=== PATIENT | male | born 1960 | race Caucasian/White ===

== ENCOUNTER 2019-07-17 12:04 | Outpatient (CLI) | payer OTHER ==
[~2019-07-17] VITALS: Ht 180.3 cm; Wt 104.1 kg
--- NOTE | ~2019-07-17 | HEMODYNAMI ---
PATIENT:JAYA TAYLOR MEDICAL RECORD: [id number] : 58 LOCATION:[facility] ADMISSION DATE: 07/17/19 Generatedon:07/17/201914:56 Patient name: JAYA TAYLOR Patient #: [id number] SSN: : 1960 Date of study: 07/17/2019 Page: Of Hemodynamic Procedure Report Patient Data Patient Demographics Procedure consent was obtained First Name: JAYA Gender: Male Last Name: BRANDON : 1960 Patient #: [id number] Age: 59 year(s) Race: Unknown Additional ID: [id number] Contact details Address: [address] [place] [address] State: [place] City: [place] Zip code: [address] Admission Admission Data Admission Date: 07/17/2019 Admission Time: 12:04 Arrival Date: 07/17/2019 Arrival Time: 0:00 Admit Source: Other Insurance Payor: [facility] Height (in.): 71 BSA: 2.25 (m2) Height (cm.): 180.34 BMI: 32.36 (kg/m2) Weight (lbs.): 232 Weight (kg.): 105.23 Lab Results Lab Result Date: 07/17/2019 Lab Result Time: 0:00 Biochemistry Name Units Result Min Max BUN mg/dl 10 --(-*--)-- 7 18 Creatinine mg/dl 1 --(--*-)-- 0.6 1.3 eGFR ml/min 81 *-(----)-- 90 120 NONAFRICAN CBC Name Units Result Min Max Hemoglobin g/dl 14.8 --(-*--)-- 13.5 17.5 Procedure Procedure Types Cath Procedure Diagnostic Procedure [facility] w/Coronaries Sedation Charges Moderate Sedation up to 30 minutes PCI Procedure Coronary Stent Coronary Stent Initial Procedure Description Procedure Date Procedure Date: 07/17/2019 Procedure Start Time: 14:17 Procedure End Time: 14:53 Procedure Staff Name Function Amaury Bush MD Performing Physician Theodora Gómez RT Monitor Kimberly Cole RT Scrub Aretha Morrissey RN Nurse Jazmyne Steel RN Bond Trader Procedure Data Cath Procedure Fluoroscopy Diagnostic fluoroscopy Total fluoroscopy Time: 7.5 time: 7.5 min min Diagnostic fluoroscopy Total fluoroscopy dose: dose: 1454 mGy 1454 mGy Contrast Material Contrast Material Type Amount (ml) Isovue 300 144 Entry Location Entry Primary Successful Side Size Upsize Upsize Entry Closure Succes sful Closure Location (Fr) 1 (Fr) 2 (Fr) Remarks Device Remarks Femoral Right 5 Fr 6 Fr Exoseal artery Short Estimated blood loss: 5 ml Diagnostic catheters Device Type Used For End Catheter Placement MULTIPACK JL 4.0 5Fr Left Coronary catheter Angiography MULTIPACK 3DRC 5Fr Right Coronary catheter Angiography MULTIPACK Pigtail 5 Fr LV Angiography catheter Procedure Complications No complications Procedure Medications Medication Administration Route Dosage Oxygen etCO2 Nasal cannula 2 l/min Lidocaine 2% added to field 20 Heparin Flush Bag added to field 2 bags (1000units/500ml NS) 0.9% NaCl I.V. 100 ml/hr Versed I.V. 2 mg Fentanyl I.V. 50 mcg Versed I.V. 2 mg Fentanyl I.V. 50 mcg Fentanyl I.V. 50 mcg Fentanyl I.V. 50 mcg Versed I.V. 2 mg Heparin Bolus I.V. 10614 units Nitroglycerin IC/IA I.C. 100 mcg Plavix P.O. 600 mg Hemodynamics Rest BSA: 2.25 (m2) HGB: 14.8 (g/dl) O2 Consumption: Estimated: 256.19 (ml/min) O2 Co nsumption indexed: Estimated:113.86 (ml/min/m) Heart Rate: 60 (bpm) Pressure Samples Time Site Value (mmHg) Purpose Heart Use Rate(bpm) 14:28 LV 133/6,26 Snapshot 62 14:28 AO 128/63(93) Pullback 63 Gradients Valve Time Site Site 2 Mean SEP/DFP Peak To Heart Use 1 (mmHg) (sec/min) Peak Rate (mmHg) (bpm) Aortic 14:28 LV AO 16 5 63 128/63(93) Calculations Valve P-P Mean Valve Index Valve Source Name Gradient Area Flow (cm2) Aortic 16 16 Snapshots Pre Cath Intra NCS Post Cath Vital Signs Time Heart Resp SPO2 etCO2 NIBP (mmHg) Rhythm Pain Sedation Rate (ipm) (%) (mmHg) Status Level (bpm) 14:03:01 58 16 100 26.3 Measuring SB 0 (11) 10(A) , No pain 14:09:12 57 19 97 30 Measuring SB 0 (11) 10(A) , No pain 14:16:47 58 15 98 26 109/65(79) SB 0 (11) 10(A) , No pain 14:20:58 59 11 98 28.5 120/72(92) SB 0 (11) 10(A) , No pain 14:25:58 59 18 97 30.8 Measuring SB 0 (11) 10(A) , No pain 14:25:59 59 18 99 30.8 119/68(100) SB 0 (11) 10(A) , No pain 14:30:15 60 13 98 34.5 124/70(94) NSR 0 (11) 10(A) , No pain 14:34:29 60 14 96 22.5 118/72(94) NSR 0 (11) 10(A) , No pain 14:38:44 60 17 97 31.5 111/65(76) NSR 0 (11) 10(A) , No pain 14:42:55 59 16 97 33 114/61(87) SB 0 (11) 10(A) , No pain 14:47:09 60 18 96 27.7 115/64(93) NSR 0 (11) 10(A) , No pain 14:51:19 59 14 97 31.5 124/74(89) NSR 0 (11) 10(A) , No pain Medications Time Medication Route Dose Verified Delivered Reason Notes Effectiveness by by 14:00:41 Oxygen etCO2 2 Amaury Buffie used for Nasal l/min Eleazar Morrissey RN procedure cannula 14:00:49 Lidocaine 2% added 20ml Amaury Amaury for local to vial Eleazar Bush MD anesthetic field 14:00:55 Heparin Flush added 2 Amaury Amaury used for Bag to bags Eleazar Bush MD procedure (1000units/500ml field NS) 14:01:04 0.9% NaCl I.V. 100 Amaury Buffie Per physician ml/hr Eleazar Morrissey RN 14:06:18 Fentanyl I.V. 50 Amaury Jazmyne for sedation [facility] Eleazar Steel RN 14:06:18 Versed I.V. 2 mg Amaury Jazmyne for sedation Eleazar Steel RN 14:12:27 Versed I.V. 2 mg Amaury Jazmyne for sedation Eleazar Steel RN 14:12:32 Fentanyl I.V. 50 Amaury Jazmyne for sedation mcg Eleazar Steel RN 14:18:40 Fentanyl I.V. 50 Amaury Jazmyne for sedation mcg Eleazar Steel RN 14:24:47 Fentanyl I.V. 50 Amaury Jazmyne for sedation mcg Eleazar Steel RN 14:29:54 Versed I.V. 2 mg Amaury Jazmyne for sedation Eleazar Steel RN 14:33:24 Heparin Bolus I.V. 20090 Amaury Jazmyne for verif ied units Eleazar Steel anticoagulation with Dr. COLIN Bush 14:42:10 Nitroglycerin I.C. 100 Amaury Amaury for IC/IA mcg Eleazar greenberg 14:52:07 Plavix P.O. 600 Amaury Jazmyne for mg Eleazar Steel antiplatelet RN therapy Procedure Log Time Note 13:30:56 Aretha Morrissey RN sent for patient. Start room use. 13:47:33 Diagnostic Cath Status : Elective 13:48:03 Time tracking: Regular hours (M-F 7:00 - 5:00) 13:48:06 Plan of Care:Hemodynamics will remain stable., Cardiac rhythm will remain stable., Comfort level will be maintained., Respiratory function will remain adequate., Patient/ family verbilizes understanding of procedure., Procedure tolerated without complication., Recovers from procedure without complications.. 13:49:19 ACC Patient presents with Stable Angina CCS Anginal Class 2--Slight limitation of ordinary activity. 13:50:03 ACCPatient has been prescribed/administered the following anti-anginal medication within the last 2 weeks: None 13:50:07 Procedure Status Elective Heart Cath (OP). 13:50:30 Informed consent obtained and on chart 13:50:56 Admit Source: Other 13:51:11 Arrival Date: 07/17/2019 12:00:00 AM 13:51:31 Insurance Payor : [facility] 13:51:41 Patient Height : 71 inches 13:51:45 Patient Weight : 232 lbs 13:55:31 Lab Result : Creatinine 1 mg/dl 13:55:31 Lab Result : BUN 10 mg/dl 13:55:31 Lab Result : Hemoglobin 14.8 g/dl :55:31 Lab Result : eGFR NONAFRICAN 81 ml/min 13:55:40 2) 60-89 Mildly reduced kidney function, and other findings (as for stage 1) point to kidney disease. 13:56:05 Maximum allowable contrast dose (3.7 X eGFR X 0.75)224 ml. 13:56:46 Patient received from Pre/Post Procedure Room to [facility] 2 Alert and oriented. Tansferred to table in Supine position. 13:56:48 Warm blankets applied, and gordon hugger turned on for patient comfort. 13:56:48 Correct patient and procedure confirmed by team. 13:56:49 ECG and BP/O2 sat monitors applied to patient. 14:00:41 Oxygen 2 l/min etCO2 Nasal cannula was administered by Aretha Morrissey RN; used for procedure; 14:00:49 Lidocaine 2% 20ml vial added to field was administered by Amaury Bush MD; for local anesthetic; 14:00:55 Heparin Flush Bag (1000units/500ml NS) 2 bags added to field was administered by Amaury Bush MD; used for procedure; 14:01:04 0.9% NaCl 100 ml/hr I.V. was administered by Aretha Morrissey RN; Per physician; 14:01:11 Vital chart was started 14:03:45 Baseline sample Acquired. 14:03:49 Rhythm: sinus rhythm 14:03:51 Full Disclosure recording started 14:03:55 H&P Date Dictated: 07/17/2019 Within 30 days and on chart., H&P Addendum completed by physician on day of procedure. (MUST COMPLETE FOR ALL OUTPATIENTS). 14:03:57 Pre-procedure instructions explained to patient. 14:03:57 Pre-op teaching completed and patient verbalized understanding. 14:04:04 Family in waiting room. 14:04:05 Patient NPO since Midnight. 14:04:07 Is the patient allergic to Iodine/contrast media? No. 14:04:08 Was the patient premedicated? No 14:04:42 Is patient on blood thinner?No 14:04:44 Patient diabetic? No. 14:04:47 Previous problem with sedation/anesthesia? No ? 14:04:49 Snore? Yes 14:04:50 Sleep apnea? No 14:04:51 Deviated septum? No 14:04:51 Opens mouth fully? Yes 14:04:52 Sticks out tongue? Yes 14:04:55 Airway obstruction? Yes copd 14:04:58 Dentures? Yes out 14:05:02 Pre procedure: right dorsailis pedis pulse 2+ Normal; easily identifiable; not easily obliterated 14:05:03 Pre procedure: left dorsailis pedis pulse 2+ Normal; easily identifiable; not easily obliterated 14:05:06 Patient pain scale 0/10 ?. 14:05:12 IV patent on arrival in left forearm with 0.9% NaCl at [facility]. 14:05:14 Lab results completed and on chart. 14:05:18 Right groin area was prepped with chlora-prep and draped in sterile fashion 14:05:19 Alarms reviewed by R. N. 14:05:19 Sharps counted by scrub and verified by R.N. 14:05:21 Physician arrived 14:05:21 --------ALL STOP TIME OUT------ 14:05:21 Final Timeout: patient, procedure, and site verified with staff and physician. All members of the team are in agreement. 14:05:23 Right groin site verified by team. 14:05:26 Fire Safety Assessment: A--An alcohol-based skin anteseptic being used preoperatively., C--Open oxygen or nitrous oxide is being used., D--An ESU, laser, or fiber-optic light is being used. 14:05:29 Physical assessment completed. ASA score P 2 - A patient with mild systemic disease as per Amaury Bush MD. 14:05:33 Sedation plan: IV Moderate Sedation Medication:Versed, Fentanyl 14:05:39 Use device set Femoral Dx 14:05:40 ACIST Syringe (06640) opened to sterile field. 14:05:40 Bag Decanter (2002) opened to sterile field. 14:05:41 Medline Cath Pack ([id number]) opened to sterile field. 14:05:42 ACIST Hand Control (39719) opened to sterile field. 14:05:43 ACIST Manifold (94608) opened to sterile field. 14:05:43 DIAGNOSTIC Multipack 5Fr catheter set (QX9986) opened to sterile field. 14:05:44 Tegaderm 4 x 4 (1626W) opened to sterile field. 14:05:45 EMERALD Guide Wire (485-078) opened to sterile field. 14:05:46 SHEATH 5FR Hamilton (YDX277) opened to sterile field. 14:06:18 Versed 2 mg I.V. was administered by Jazmyne Steel RN; for sedation; 14:06:18 Fentanyl 50 mcg I.V. was administered by Jazmyne Steel RN; for sedation; 14:12:27 Versed 2 mg I.V. was administered by Jazmyne Steel RN; for sedation; 14:12:32 Fentanyl 50 mcg I.V. was administered by Jazmyne Steel RN; for sedation; 14:17:55 Procedure started. 14:17:59 Local anesthetic to right femoral artery with Lidocaine 2% by Amaury Bush MD.INITIAL ACCESS ONLY 14:18:06 A 5 Fr sheath was inserted into the Right Femoral artery 14:18:40 Fentanyl 50 mcg I.V. was administered by Jazmyne Steel RN; for sedation; 14:19:28 A MULTIPACK JL 4.0 5Fr catheter was advanced over the wire and used for Left Coronary Angiography. 14:20:14 LCA angiography performed. 14:20:17 Injector settings: Ml/sec: 3, Volume: 6, 14:24:17 Catheter removed. 14:24:22 A MULTIPACK 3DRC 5Fr catheter was advanced over the wire and used for Right Coronary Angiography. 14:24:47 Fentanyl 50 mcg I.V. was administered by Jazmyne Steel RN; for sedation; 14:25:36 RCA angiography performed. 14:25:39 Injector settings: Ml/sec: 3, Volume: 6, 14:26:38 Catheter removed. 14:26:47 A MULTIPACK Pigtail 5 Fr catheter was advanced over the wire and used for LV Angiography. 14:28:30 LV hemodynamics recorded. 14:28:31 LV gram done using HEAD 14:28:33 Injector settings: Ml/sec: 5, Volume: 15, 14:28:44 EF : 55 % 14:28:51 Catheter removed. 14:28:52 Proceeding to intervention. 14:29:00 ACCDominant side:Right 14:29:00 GUIDE 6FR XBLAD 3.5 catheter ([id number]) opened to sterile field. 14:29:01 BMW 300cm [place] 2 J wire ([id number]) opened to sterile field. 14:29:01 INFLATOR Merit BasixCompak (CY1160) opened to sterile field. 14:29:02 SHEATH 6FR Hamilton (PEX946) opened to sterile field. 14:29:03 TUBING High Pressure Extension Tubing (Eleazar) ([id number]) opened to sterile field. 14:29:04 PCI Cath status Elective 14:29:15 Sheath upsized to a 6 Fr Short. 14:29:21 ACC Pre-intervention AIRAM Flow is 3. 14:29:34 Pre PCI Site: [place] mCirc has 90% stenosis. 14:29:54 Versed 2 mg I.V. was administered by Jazmyne Steel RN; for sedation; 14:30:24 6 Fr xblad 3.5 guide catheter was inserted over the wire 14:31:09 bmw wire advanced. 14:31:12 Wire advanced across lesion. 14:33:24 Heparin Bolus 28548 units I.V. was administered by Jazmyne Steel RN; for anticoagulation; verified with Dr. Bush 14:38:24 Inflate balloon Inflation number: 1 A EMERGE OTW 2.5 x 20 balloon ([id number]) was prepped and advanced across the Mid CX 90, then inflated to 10 COURTNEY for 0:10 (min:sec) . 14:39:04 Balloon removed over the wire. 14:42:10 Nitroglycerin IC/IA 100 mcg I.C. was administered by Amaury Bush MD; for vasodilation; 14:47:22 Place stent Inflation Number: 2 A COBRA RX 2.5 X 24 Stent was prepped and advanced across the Mid CX 90. The stent was deployed at 16 COURTENY for 0:10 (min:sec) . 14:48:00 ACC Post-intervention AIRAM Flow is 3. 14:48:05 ACT drawn and resulted at 347 seconds. (normal therapeutic range 180-240 seconds). 14:48:10 Stent catheter was removed intact over wire. 14:48:10 Wire removed. 14:48:11 Guide catheter removed. 14:48:18 EXOSEAL 6Fr (EX600) opened to sterile field. 14:48:41 Sheath removed intact; hemostasis achieved with Exoseal to the Right Femoral artery. 14:48:43 Procedure ended.(Physican Out) 14:48:55 Fluoroscopy time 07.50 minutes. 14:49:01 Fluoroscopy dose: 1454 mGy 14:49:01 Flurop Dose total: 1454 14:49:07 Dose Area Product 71653 mGy/cm. 14:49:31 Contrast amount:Isovue 300 144ml. 14:49:39 Sharps counted by scrub and verified by R.N. 14:49:40 Insertion/operative site no bleeding no hematoma. 14:49:43 Post-op/insertion site Right Femoral artery dressed using a 4 x 4 and Tegaderm. 14:49:46 Post procedure rhythm: unchanged. 14:49:49 Estimated blood loss: 5 ml 14:50:26 Post procedure instruction explained to patient.Patient verbalizes understanding. 14:50:27 Patient needs reinforcement of post procedure teaching. 14:50:37 Procedure type changed to Cath procedure, Diagnostic procedure, LHC, LHC w/Coronaries, Sedation Charges, Moderate Sedation up to 30 minutes, PCI procedure, Coronary Stent, Coronary Stent Initial 14:51:08 Procedure and supply charges have been captured, reviewed, submitted and are correct. 14:51:12 Procedure Complication : No complications 14:51:15 Vital chart was stopped 14:51:16 See physician's report for complete and final results. 14:52:07 Plavix 600 mg P.O. was administered by Jazmyne Steel RN; for antiplatelet therapy; 14:52:57 Report given to Pre/Post Procedure Room. 14:53:00 Patient transfered to Pre/Post Procedure Room with Stretcher. 14:53:02 Procedure ended. 14:53:02 Full Disclosure recording stopped 14:53:19 ACC-PCI Only Patient was given prescriptions, or instructed by Amaury Bush MD to start/continue the following medications upon discharge: Plavix 14:53:21 End room use (Document Last) Intervention Summary Intervention Notes Time ActionType Lesion and Equipment Action# Pressure Duration Attributes Used 14:38:24 Inflate Mid CX EMERGE OTW 1 10 00:10 balloon 2.5 x 20 balloon ([id number]) 14:47:22 Place stent Mid CX COBRA RX 2.5 2 16 00:10 X 24 Stent Device Usage Item Name Manufacture Quantity Catalog Number [facility] Leandro harper [facility] Lot# / Charge Number Stock Stock Serial# Code ACIST Syringe Acist 1 68008 740377 031732 985547 20 (49800) Medical Systems Inc Bag Decanter Microtek 1 2001S 938203 85005 178038 5 () Medical Inc. Medline Cath Medline 1 [id number] 129512 71464 617021 5 Pack ([id number]) ACIST Hand Acist 1 46419 040149 076973 744060 5 Control Medical (96098) Systems Inc ACIST Manifold Acist 1 40489 121820 437322 093742 5 (26202) Medical Systems Inc DIAGNOSTIC Cardinal 1 [id number] 076997 09586 482856 30 Multipack 5Fr Health catheter set (NG3780) Tegaderm 4 x 4 3M 1 1626W 412547 679917 161405 5 (1626W) EMERALD Guide Cardinal 1 502-455 489056 674320 837116 5 Wire (502-455) Health SHEATH 5FR Terumo 1 OQG890 742521 294932 610130 5 Hamilton (TMG163) MULTIPACK JL Cardinal 1 806096 5 4.0 5Fr Health catheter MULTIPACK 3DRC Cardinal 1 269794 5 5Fr catheter Health MULTIPACK Cardinal 1 920429 5 Pigtail 5 Fr Health catheter GUIDE 6FR Cardinal 1 91935299 786898 537646 270759 10 XBLAD 3.5 Health catheter ([id number]) BMW 300cm [place] 1 [id number] 645352 436114 693115 5 [place] 2 J Vascular wire ([id number]) INFLATOR Merit Merit 1 GN7061 246824 535705 971171 15 BasixCompak Medical (AM7325) SHEATH 6FR Terumo 1 BJJ258 883580 620663 220587 40 Hamilton (WXX095) TUBING High Merit 1 [id number] 382873 63078 626627 10 Pressure Medical Extension Tubing (Bush) (AV0879Y) EMERGE OTW 2.5 [place] 1 [id number] 509730 353709 964568 5 [id number] x 20 balloon Scientific ([id number]) COBRA RX 2.5 X Celonova 1 260437 537263589 563306 5 2 [id number] 24 stent Biosciences ([id number]) EXOSEAL 6Fr Cardinal 1 EX600 024177 600049 694478 10 (EX600) Health Signature Audit [place] Stage Time Signature Unsigned Intra-Procedure 07/17/2019 Theodora Gómez 2:56:19 PM RT(R) Signatures Performing Physician : Signature : Amaury Bush MD Date : Time : Monitor : Theodora Gómez RT Signature : Date : Time : Nurse : Aretha Morrissey RN Signature : Date : Time : [address] [address]
[2019-07-17] MEDS ORDERED: HYDROCODON-ACE1 EA10 PO (12:27)
[2019-07-17] MEDS ORDERED: PRAVACHOL40 MG PO (12:28)
[2019-07-17] MEDS ORDERED: DILTIAZEM 24HR120 M3 PO (12:28)
[2019-07-17] MEDS ORDERED: KLOR-CON 1010 MEQ PO (12:29)
[2019-07-17 12:31] VITALS: BP 138/70; Ht 180.3 cm; Wt 104.1 kg
[2019-07-17 12:45] LABS: BASOPHILS 0.1 % (0-2); EOSINOPHILS 1.8 % (0-7); HEMATOCRIT 42.6 % (42.0-54.0); HEMOGLOBIN 14.8 g/dL (13.5-17.5); IMMATURE GRANULOCYTES 0.3 % (0-5); LYMPHOCYTES 34.3 % (15-50); MCHC 34.7 g/dL (31.0-37.0); MCV 103.6 fL (80.0-100.0); MEAN PLATELET VOLUME 9.1 fL (7.4-10.4); MONOCYTES 8.9 % (2-11); NEUTROPHILS 54.6 % (40-80); PLATELET COUNT 196 10x3/uL (130-400); RBC 4.11 10x6/uL (4.20-6.10); RDW 13.4 % (11.5-14.5); WBC 7.2 10x3/uL (4.8-10.8)
[2019-07-17 12:55] LABS: ALT (SGPT) 23 U/L (10-68); CALC OSMOLALITY 272 mosm/kg (275-300); CALCIUM 8.6 mg/dL (8.5-10.1); CARBON DIOXIDE 25.9 mmol/L (21.0-32.0); CHLORIDE - SERUM 102 mmol/L (98-107); CHOL - HDL RATIO 3.1 ratio (2.3-4.9); CHOLESTEROL, TOTAL 204 mg/dL (0-200); GLUCOSE 92 mg/dL (74-106); HDL CHOLESTEROL 66 mg/dL (32-96); LDL CHOLESTEROL 96 mg/dL (0-100); LDL-HDL RATIO 1.5 ratio (1.5-3.5); POTASSIUM - SERUM 4.1 mmol/L (3.5-5.1); SODIUM 137 mmol/L (136-145); TRIGLYCERIDE 212 mg/dL (30-200); UREA NITROGEN 10 mg/dL (7-18); eGFR NON AFRICAN AMERICAN 81 mL/min (90-120)
[2019-07-17] MEDS ORDERED: PLAVIX75 MG PO (15:20)
[2019-07-17] MEDS ORDERED: BAYER CHEWABLE81 MG PO (15:20)
--- NOTE | 2019-07-17 15:25 | NUR ---
1525 PT CELESTINE PO FLUIDS WITH NO C/O NAUSEA. DRESSING IS CDI TO RIGHT GROIN, AREA IS SOFT AND NONTENDER. PEDAL PULSES PALPABLE. HOB IS FLAT, VSS.
--- NOTE | 2019-07-17 16:08 | NUR ---
1550 DRESSING CDI, PEDAL PULSES PALPABLE. HOB IS FLAT. VSS, PT ALERT AND DENIES ANY C/O. NO FAMILY AT BEDSIDE, CALL LIGHT IN REACH.
--- NOTE | 2019-07-17 16:15 | NUR ---
PT ALERT, DENIES ANY C/O. DRESSING IS CDI TO RIGHT GROIN, PEDAL PULSES PALPABLE. SINUS NIKA, RATE IS 54. BP IS 105/46. PT CELESTINE SIPS OF WATER WITH NO C/O NAUSEA.
--- NOTE | 2019-07-17 16:54 | NUR ---
PT ALERT, DENIES ANY C/O PAIN OR NAUSEA. DRESING IS CDI TO RIGHT GROIN, AREA IS SOFT AND NONTENDER. PEDAL PULSES PALPABLE. VSS. PT DENIES ANY NEEDS AT THIS TIME.
--- NOTE | 2019-07-17 17:10 | NUR ---
DRESSING CDI, PEDAL PULSES PALPABLE. VSS, PT DENIES ANY C/O.
--- NOTE | 2019-07-17 17:53 | NUR ---
1740 DRESSING CDI, PEDAL PULSES PALPABLE. PT IS ALERT AND DENIES ANY C/O. VSS, CALL LIGHT IN REACH. HOB IS FLAT.
--- NOTE | 2019-07-17 18:10 | NUR ---
HOB ELEVATED AND [facility] PO FLUIDS SERVED. PT IS ALERT AND DENIES ANY C/O. DRESSING REMAINS CDI TO RIGHT GROIN, PEDAL PULSES 2+. VSS. DENIES ANY CHEST PAIN.
--- NOTE | 2019-07-17 18:40 | NUR ---
1840 PT HAS CELESTINE SANDWICH AND PO FLUIDS WITH NO C/O NAUSEA. DRESSING REMAINS CDI R GROIN, PEDAL PULSES 2+. DC INSTRUCTIONS REVIEWED WITH PT WHO VERBALIZES UNDERSTANDING. PLAVIX PRESCRITION TO PT WHO VERBALIZES UNDERSTANDING TO START THIS MEDICATION TOMORROW. IV D'D WITH CATH INTACT AND PT IS DRESSING FOR DC TO HOME WITH ASSIST.
--- NOTE | 2019-07-17 18:55 | NUR ---
PT HAS DRESSED FOR DC TO HOME, HAS AMBULTED TO THE BATHROOM AND VOIDED QS. DENIES ANY C/O. PT ESCORTED TO PRIVATE AUTO VIA WC BY NURSE WITH FRIEND DRIVING HIM HOME. PT HAS ALL PERSONAL BELONGINGS AND DC INSTRUCTIONS AT TIME OF DISCHARGE TO HOME.
== END 2019-07-17 18:55 | disposition home or self-care (01) ==
LOC: D.CATH 12:04
PROVIDERS: ATTEND Internal Medicine Cardiovascular Disease
DX: I25.119 Atherosclerotic heart disease of native coronary artery with unspecified angina pectoris (principal); Z01.812 Encounter for preprocedural laboratory examination

== ENCOUNTER 2019-07-31 10:59 | Outpatient (CLI) | payer OTHER ==
[~2019-07-31] VITALS: Ht 180.3 cm; Wt 104.5 kg
--- NOTE | ~2019-07-31 | HEMODYNAMI ---
PATIENT:JAYA TAYLOR MEDICAL RECORD: [id number] : 58 LOCATION:[facility] ADMISSION DATE: 07/31/19 Generatedon:07/31/201913:49 Patient name: JAYA TAYLOR Patient #: [id number] SSN: [id number] : 1960 Date of study: 07/31/2019 Page: Of Hemodynamic Procedure Report Patient Data Patient Demographics Procedure consent was obtained First Name: JAYA Gender: Male Last Name: BRANDON : 1960 Middle Initial: E Age: 59 year(s) Patient #: [id number] Race: SSN: [id number] Additional ID: [id number] Contact details Address: [address] [place] [address] State: [place] City: [place] Zip code: [address] Past Medical History Allergies: No allergy information Admission Admission Data Admission Date: 07/31/2019 Admission Time: 10:59 Arrival Date: 07/31/2019 Arrival Time: 0:00 Insurance Payor: [facility] #: [id number] Height (in.): 70.87 BSA: 2.24 (m2) Height (cm.): 180 BMI: 32.41 (kg/m2) Weight (lbs.): 231.49 Weight (kg.): 105 Lab Results Lab Result Date: 07/31/2019 Lab Result Time: 0:00 Biochemistry Name Units Result Min Max BUN mg/dl 11 --(-*--)-- 7 18 eGFR ml/min 90 --(*---)-- 90 120 NONAFRICAN CBC Name Units Result Min Max Hematocrit % 41.9 -*(----)-- 42 54 Hemoglobin g/dl 14.4 --(*---)-- 13.5 17.5 Procedure Procedure Types Cath Procedure Diagnostic Procedure Sedation Charges Moderate Sedation up to 15 minutes PCI Procedure Coronary Stent Coronary Stent Initial Procedure Description Procedure Date Procedure Date: 07/31/2019 Procedure Start Time: 13:26 Procedure End Time: 13:43 Procedure Staff Name Function Amaury Bush MD Performing Physician Gypsy Dimas RT Monitor Aretha Morrissey RN Nurse Fidel Interiano RT Scrub Procedure Data Cath Procedure Fluoroscopy Diagnostic fluoroscopy Total fluoroscopy Time: 2.5 time: 2.5 min min Diagnostic fluoroscopy Total fluoroscopy dose: 405 dose: 405 mGy mGy Contrast Material Contrast Material Type Amount (ml) Isovue 300 54 Entry Location Entry Primary Successful Side Size Upsize Upsize Entry Closure Succes sful Closure Location (Fr) 1 (Fr) 2 (Fr) Remarks Device Remarks Femoral Right 6 Fr Exoseal artery Short Estimated blood loss: 10 ml Procedure Complications No complications Procedure Medications Medication Administration Route Dosage Oxygen etCO2 Nasal cannula 2 l/min Lidocaine 2% added to field 20 Heparin Flush Bag added to field 2 bags (1000units/500ml NS) 0.9% NaCl I.V. 100 ml/hr Versed I.V. 2 mg Fentanyl I.V. 100 mcg Versed I.V. 2 mg Fentanyl I.V. 100 mcg Heparin Bolus I.V. 31304 units Versed I.V. 2 mg Nitroglycerin IC/IA I.C. 100 mcg Plavix P.O. 75 mg Hemodynamics Rest BSA: 2.24 (m2) HGB: 14.4 (g/dl) O2 Consumption: Estimated: 254.17 (ml/min) O2 Co nsumption indexed: Estimated:113.47 (ml/min/m) Heart Rate: 59 (bpm) Snapshots Pre Cath Intra NCS Post Cath Vital Signs Time Heart Resp SPO2 etCO2 NIBP (mmHg) Rhythm Pain Sedation Rate (ipm) (%) (mmHg) Status Level (bpm) 13:07:57 60 18 98 31.4 131/70(106) NSR 0 (11) 10(A) , No pain 13:12:13 59 19 97 32.2 127/62(122) NSR 0 (11) 10(A) , No pain 13:16:27 60 18 97 17.9 125/72(99) NSR 0 (11) 10(A) , No pain 13:20:51 59 17 96 33.7 117/54(100) NSR 0 (11) 10(A) , No pain 13:25:03 61 20 96 27.7 112/74(102) NSR 0 (11) 10(A) , No pain 13:29:15 57 17 96 30.6 110/69(92) NSR 0 (11) 9(A) , No pain 13:33:27 61 14 96 35.2 119/59(83) NSR 0 (11) 9(A) , No pain 13:37:43 62 14 95 35.9 109/60(82) NSR 0 (11) 9(A) , No pain 13:41:44 63 15 95 32.9 115/90(96) NSR 0 (11) 10(A) , No pain Medications Time Medication Route Dose Verified Delivered Reason Note s Effectiveness by by 13:11:49 Oxygen etCO2 2 Amaury Buffie used for Nasal l/min Eleazar Morrissey RN procedure cannula 13:11:55 Lidocaine 2% added 20ml Amaury Amaury for local to vial Eleazar Bush MD anesthetic field 13:12:03 Heparin Flush added 2 bags Amaury Amaury used for Bag to Eleazar Bush MD procedure (1000units/500ml field NS) 13:12:12 0.9% NaCl I.V. 100 Amaury Buffie Per physician ml/hr Eleazar Morrissey RN 13:18:06 Versed I.V. 2 mg Amaury Buffie for sedation Eleazar Morrissey RN 13:18:11 Fentanyl I.V. 100 Amaury Buffie for sedation mcg Eleazar Morrissey RN 13:24:15 Versed I.V. 2 mg Amaury Buffie for sedation Eleazar Morrissey RN 13:24:18 Fentanyl I.V. 100 Amaury Buffie for sedation mcg Eleazar Morrissey RN 13:30:17 Heparin Bolus I.V. 10,000 Amaury Buffie for veri fied units Eleazar Morrissey RN anticoagulation with dr bush 13:30:58 Versed I.V. 2 mg Amaury Buffie for sedation Eleazar Morrissey RN 13:36:56 Nitroglycerin I.C. 100 Amaury Amaury for IC/IA mcg Eleazar Bush MD vasodilation 13:45:44 Plavix P.O. 75 mg Amaury Buffie for Eleazar Morrissey RN antiplatelet therapy Procedure Log Time Note 12:41:26 Signed procedure consent form obtained from patient. 12:41:31 Procedure Status Elective Heart Cath (OP). 12:41:33 Time tracking: Regular hours (M-F 7:00 - 5:00) 12:41:36 Plan of Care:Hemodynamics will remain stable., Cardiac rhythm will remain stable., Comfort level will be maintained., Respiratory function will remain adequate., Patient/ family verbilizes understanding of procedure., Procedure tolerated without complication., Recovers from procedure without complications.. 12:41:45 Aretha Morrissey RN sent for patient. Start room use. 12:42:30 Patient Weight : 231.49 lbs 12:42:36 Arrival Date: 07/31/2019 12:00:00 AM 12:43:02 Patient allergic to No allergy information 12:43:38 Lab Result : BUN 11 mg/dl 12:43:38 Lab Result : eGFR NONAFRICAN 90 ml/min 12:43:38 Lab Result : Hemoglobin 14.4 g/dl 12:43:38 Lab Result : Hematocrit 41.9 % 12:43:46 Patient Height : 70.87 inches 12:44:58 Insurance Payor : [facility] 12:53:17 Patient received from Pre/Post Procedure Room to CCL 1 Alert and oriented. Tansferred to table in Supine position. 12:53:19 Warm blankets applied, and gordon hugger turned on for patient comfort. 12:53:19 Correct patient and procedure confirmed by team. 12:53:21 ECG and BP/O2 sat monitors applied to patient. 13:06:49 Vital chart was started 13:09:55 H&P Date Dictated: 07/31/2019 New H&P dictated by physician.. 13:09:56 Pre-procedure instructions explained to patient. 13:09:57 Pre-op teaching completed and patient verbalized understanding. 13:10:48 Patient NPO since Midnight. 13:10:51 Is patient on blood thinner?Yes 13:10:53 ACC The patient was administered the following blood thiners within the last 24 hours: ACCPlavix 13:10:56 Patient diabetic? No. 13:10:59 Previous problem with sedation/anesthesia? No ? 13:11:05 Snore? Yes 13:11:06 Sleep apnea? Yes 13:11:08 Deviated septum? No 13:11:09 Opens mouth fully? Yes 13:11:10 Sticks out tongue? Yes 13:11:13 Airway obstruction? No ? 13:11:17 Dentures? No ? 13:11:19 Pre procedure: right dorsailis pedis pulse 1+ Palpable, but thready & weak; easily obliterated 13:11:24 Patient pain scale 0/10 ?. 13:11:33 IV patent on arrival in left hand with 0.9% NaCl at O. 13:11:36 Lab results completed and on chart. 13:11:41 Right groin area was prepped with chlora-prep and draped in sterile fashion 13:11:42 Sharps counted by scrub and verified by R.N. 13:11:44 Alarms reviewed by R. N. 13:11:49 Oxygen 2 l/min etCO2 Nasal cannula was administered by Aretha Morrissey RN; used for procedure; 13:11:49 Use device set CATH PACK 13:11:50 ACIST Syringe (60350) opened to sterile field. 13:11:51 ACIST Hand Control (39860) opened to sterile field. 13:11:51 ACIST Manifold (29614) opened to sterile field. 13:11:51 Medline Cath Pack ([id number]) opened to sterile field. 13:11:52 Bag Decanter (2002) opened to sterile field. 13:11:52 EMERALD Guide Wire (663-778) opened to sterile field. 13:11:55 Lidocaine 2% 20ml vial added to field was administered by Amaury Bush MD; for local anesthetic; 13:12:03 Heparin Flush Bag (1000units/500ml NS) 2 bags added to field was administered by Amaury Bush MD; used for procedure; 13:12:12 0.9% NaCl 100 ml/hr I.V. was administered by Aretha Morrissey RN; Per physician; 13:14:02 SHEATH 6FR [place] (CHE324) opened to sterile field. 13:14:02 BMW 300cm Straight [place] 2 wire (7153730) opened to sterile field. 13:14:02 INFLATOR Merit BasixCompak (NM3451) opened to sterile field. 13:14:03 TUBING High Pressure Extension Tubing (Eleazar) (PT5784H) opened to sterile field. 13:17:48 Baseline sample Acquired. 13:17:51 Rhythm: sinus bradycardia 13:17:52 Full Disclosure recording started 13:17:59 --------ALL STOP TIME OUT------ 13:18:00 Final Timeout: patient, procedure, and site verified with staff and physician. All members of the team are in agreement. 13:18:00 Right groin site verified by team. 13:18:03 Fire Safety Assessment: A--An alcohol-based skin anteseptic being used preoperatively., C--Open oxygen or nitrous oxide is being used., D--An ESU, laser, or fiber-optic light is being used. 13:18:05 Physical assessment completed. ASA score P 2 - A patient with mild systemic disease as per Amaury Bush MD. 13:18:06 Versed 2 mg I.V. was administered by Aretha Morrissey RN; for sedation; 13:18:09 1) 90+ Normal kidney functon but urine findings or structural abnormalities or genetic trait point to kidney disease. 13:18:11 Fentanyl 100 mcg I.V. was administered by Aretha Morrissey RN; for sedation; 13:18:11 Maximum allowable contrast dose (3.7 X eGFR X 0.75)250 ml. 13:18:13 Sedation plan: IV Moderate Sedation Medication:Versed, Fentanyl 13:21:19 Zero performed for pressure channel P1 13:24:15 Versed 2 mg I.V. was administered by Aretha Morrissey RN; for sedation; 13:24:18 Fentanyl 100 mcg I.V. was administered by Aretha Morrissey RN; for sedation; 13:26:09 Procedure started. 13:26:33 Local anesthetic to right femoral artery with Lidocaine 2% by Amaury Bush MD.INITIAL ACCESS ONLY 13:27:04 GUIDE 6FR XBLAD 3.5 catheter ([id number]) opened to sterile field. 13:28:11 A 6 Fr Short sheath was inserted into the Right Femoral artery 13:28:28 6 Fr XBLAD 3.5 guide catheter was inserted over the wire 13:30:17 Heparin Bolus 10,000 units I.V. was administered by Aretha Morrissey RN; for anticoagulation; verified with dr bush 13:30:58 Versed 2 mg I.V. was administered by Aretha Morrissey RN; for sedation; 13:32:24 BMW 300 wire advanced. 13:33:21 Wire advanced across lesion. 13:35:05 ACT drawn and resulted at 305 seconds. (normal therapeutic range 180-240 seconds). 13:35:52 Place stent Inflation Number: 1 A COBRA RX 3.0 X 30 Stent was prepped and advanced across the Mid LAD . The stent was deployed at 11 COURTNEY for 0:00 (min:sec) . 13:36:28 Stent catheter was removed intact over wire. 13:36:56 Nitroglycerin IC/IA 100 mcg I.C. was administered by Amaury Bush MD; for vasodilation; 13:39:18 Wire removed. 13:39:18 Guide catheter removed. 13:39:42 EXOSEAL 6Fr (EX600) opened to sterile field. 13:39:51 Sheath removed intact; hemostasis achieved with Exoseal to the Right Femoral artery. 13:40:16 Fluoroscopy time 02.50 minutes. 13:40:20 Flurop Dose total: 405 13:40:20 Fluoroscopy dose: 405 mGy 13:40:25 Dose Area Product 96971 mGy/cm. 13:40:30 Contrast amount:Isovue 300 54ml. 13:40:33 Maximum allowable dose exceeded? No. 13:40:34 Sharps counted by scrub and verified by R.N. 13:40:34 Procedure ended.(Physican Out) 13:42:23 Post-op/insertion site Right Femoral artery dressed using a 4 x 4 and Tegaderm. 13:42:26 Post-procedure physical assessment completed. ASA score P 2 - A patient with mild systemic disease as per Amaury Bush MD. 13:42:36 Post procedure rhythm: unchanged. 13:42:39 Estimated blood loss: 10 ml 13:42:41 Post procedure instruction explained to patient.Patient verbalizes understanding. 13:42:42 Patient needs reinforcement of post procedure teaching. 13:43:01 Procedure type changed to Cath procedure, Diagnostic procedure, Sedation Charges, Moderate Sedation up to 15 minutes, PCI procedure, Coronary Stent, Coronary Stent Initial 13:43:34 Procedure and supply charges have been captured, reviewed, submitted and are correct. 13:43:37 Procedure Complication : No complications 13:43:40 Vital chart was stopped 13:43:40 See physician's report for complete and final results. 13:43:42 Report given to Pre/Post Procedure Room. 13:43:44 Patient transfered to Pre/Post Procedure Room with Bed. 13:43:47 Procedure ended. 13:43:47 Full Disclosure recording stopped 13:43:54 End room use (Document Last) 13:45:44 Plavix 75 mg P.O. was administered by Aretha Morrissey RN; for antiplatelet therapy; Intervention Summary Intervention Notes Time ActionType Lesion and Equipment Action# Pressure Duration Attributes Used 13:35:52 Place stent Mid LAD COBRA RX 1 11 00:00 3.0 X 30 Stent Device Usage Item Name Manufacture Quantity Catalog Hospital Part Current Minimal Lot# / Number Charge Number Stock Stock Serial# Code ACIST Syringe Acist 1 60975 095299 382286 578960 20 (04765) Medical Systems Inc ACIST Hand Acist 1 40443 680699 000848 048358 5 Control Medical (30649) Systems Inc ACIST Manifold Acist 1 40265 466090 246455 600349 5 (13111) Medical Systems Inc Medline Cath Medline 1 [id number] 511126 71841 905119 5 Pack ([id number]) Bag Decanter Microtek 1 2001S 034074 09557 856677 5 (2001S) Medical Inc. EMERALD Guide Cardinal 1 502-455 763529 679244 957754 5 Wire (502-455) Health SHEATH 6FR Terumo 1 PDR857 524120 884279 191496 [address] [place] (IKE291) BMW 300cm [place] 1 [id number] 427148 775888 715059 5 Straight Vascular [place] 2 wire (7656790) INFLATOR Merit Merit 1 JQ3346 696115 479356 074885 15 [facility] Center[facility] (WT9496) TUBING High Merit 1 [id number] 325631 01887 507970 10 Pressure Medical Extension Tubing (Bush) (FY6166P) GUIDE 6FR Cardinal 1 [id number] 290857 250695 900099 10 XBLAD 3.5 Health catheter ([id number]) COBRA RX 3.0 X Celonova 1 254066 [id number] 1 [id number] 30 stent Biosciences () EXOSEAL 6Fr Cardinal 1 EX600 793599 531950 629083 10 (EX600) Health Signature Audit [place] Stage Time Signature Unsigned Intra-Procedure 07/31/2019 Gypsy Dimas 1:49:19 PM RT(R) Signatures Performing Physician : Signature : Amaury Bush MD Date : Time : Monitor : Gypsy Dimas Signature : RT Date : Time : Nurse : Aretha Morrissey RN Signature : Date : Time : [place] [address] [place] [address]
[~2019-07-31 10:59] MED LIST: BAYER CHEWABLE81 MG PO; DILTIAZEM 24HR120 M3 PO; HYDROCODON-ACE1 EA10 PO; KLOR-CON 1010 MEQ PO; PLAVIX75 MG PO; PRAVACHOL40 MG PO
[2019-07-31 11:23] VITALS: BP 123/66; Ht 180.3 cm; Wt 104.5 kg
[2019-07-31 11:44] LABS: CALC OSMOLALITY 274 mosm/kg (275-300); CALCIUM 8.8 mg/dL (8.5-10.1); CARBON DIOXIDE 27.9 mmol/L (21.0-32.0); CHLORIDE - SERUM 104 mmol/L (98-107); CREATININE - SERUM 0.9 mg/dL (0.6-1.3); GLUCOSE 98 mg/dL (74-106); SODIUM 138 mmol/L (136-145); UREA NITROGEN 11 mg/dL (7-18); eGFR NON AFRICAN AMERICAN > 90 mL/min (90-120)
[2019-07-31 12:06] LABS: HEMATOCRIT 41.9 % (42.0-54.0); HEMOGLOBIN 14.4 g/dL (13.5-17.5); LYMPHOCYTES 37.8 % (15-50); MCH 35.8 pg (26.0-34.0); MCHC 34.4 g/dL (31.0-37.0); MCV 104.2 fL (80.0-100.0); MEAN PLATELET VOLUME 8.6 fL (7.4-10.4); NEUTROPHILS 53.9 % (40-80); PLATELET COUNT 206 10x3/uL (130-400); RBC 4.02 10x6/uL (4.20-6.10); RDW 12.8 % (11.5-14.5); WBC 6.2 10x3/uL (4.8-10.8)
--- NOTE | 2019-07-31 14:00 | NUR ---
PT ARRIVED BY STRETCHER. PLACED ON MONITORS. ASSESSMENT COMPLETED. VSS. PT INSTRUCTED TO KEEP HEAD FLAT ON PILLOW AND RIGHT LEG STRAIGHT. CALL LIGHT WITHIN REACH.
--- NOTE | 2019-07-31 14:15 | NUR ---
PT RESTING COMFORTABLY. VSS. RIGHT GROIN DRESSING C/D/I. NO S/S OF HEMATOMA NOTED. CALL LIGHT WITHIN REACH. NO NEEDS AT THIS TIME. RIGHT PEDAL PULSE PALPABLE.
--- NOTE | 2019-07-31 14:45 | NUR ---
PT RESTING COMFORTABLY. VSS. RIGHT GROIN DRESSING C/D/I. NO S/S OF HEMATOMA NOTED. CALL LIGHT WITHIN REACH. RIGHT PEDAL PULSE PALPABLE. NO OTHER NEEDS AT THIS TIME. DENIES PAIN/NAUSEA.
--- NOTE | 2019-07-31 15:15 | NUR ---
RIGHT GROIN DRESSING C/D/I. NO S/S OF HEMATOMA NOTED. CALL LIGHT WITHIN REACH. RIGHT PEDAL PULSE PALPABLE. NO NEEDS AT THIS TIME RESTING COMFORTABLY.
--- NOTE | 2019-07-31 15:45 | NUR ---
RIGHT GROIN DRESSING C/D/I. NO S/S OF HEMATOMA NOTED. CALL LIGHT WITHIN REACH. VSS.
--- NOTE | 2019-07-31 16:32 | NUR ---
RIGHT GROIN DRESSING C/D/I. NO S/S OF HEMATOMA NOTED. PT'S HEAD OF BED INC SLIGHTLY. TOLRATED WELL.
--- NOTE | 2019-07-31 16:42 | NUR ---
RIGHT GROIN DRESSING C/D/I. NO S/S OF HEMATOMA NOTED. HEAD OF BED AT 30 DEGREES. SET UP WITH DRINK AND SANDWICH TRAY.
--- NOTE | 2019-07-31 17:15 | NUR ---
PIV D/C'D WITH CATH TIP INTACT. PT TOLERATED WELL. RIGHT GROIN DRESSING C/D/I. NO S/S OF HEMATOMA NOTED. CALL LIGHT WITHIN REACH. PT INSTRUCTED TO GET UP AND DRESSED. PT'S DAUGHTER AT BEDSIDE.
--- NOTE | 2019-07-31 17:30 | NUR ---
PT AMBULATED TO RESTROOM. VOIDED WITHOUT DIFFICULTY. BACK TO ROOM. DISCUSSED DISCHARGE INSTRUCTIONS WITH PT AND PT'S FAMILY. THEY VOICED UNDERSTANDING. RIGHT GROIN SITE INTACT. NO S/S OF HEMATOMA NOTED.
--- NOTE | 2019-07-31 17:35 | NUR ---
PT TAKEN OUT TO VEHICLE BY WHEELCHAIR. NO S/S OF DISTRESS NOTED. ALL BELONGINGS AND PAPERWORK IN HAND.
== END 2019-07-31 17:35 | disposition home or self-care (01) ==
LOC: D.CATH 10:59
PROVIDERS: ATTEND Internal Medicine Cardiovascular Disease
DX: I25.119 Atherosclerotic heart disease of native coronary artery with unspecified angina pectoris (principal); F17.200 Nicotine dependence, unspecified, uncomplicated; J44.9 Chronic obstructive pulmonary disease, unspecified; I10 Essential (primary) hypertension; E78.5 Hyperlipidemia, unspecified

== ENCOUNTER → 2019-11-19 20:21 | Outpatient (CLI) | payer OTHER ==
[2019-07-31 11:23] VITALS: BMI 32.1
[2019-11-19 21:26] LABS: CHOL - HDL RATIO 2.6 ratio (2.3-4.9); LDL-HDL RATIO 1.3 ratio (1.5-3.5)
== END | disposition home or self-care (01) ==
LOC: D.LABREF 20:21
PROVIDERS: ATTEND Internal Medicine Cardiovascular Disease
DX: E78.5 Hyperlipidemia, unspecified (principal)

== ENCOUNTER → 2020-05-12 19:11 | Outpatient (CLI) | payer OTHER ==
[2019-07-31 11:23] VITALS: BMI 32.1
[2020-05-12 20:29] LABS: CHOL - HDL RATIO 2.3 ratio (2.3-4.9)
== END | disposition home or self-care (01) ==
LOC: D.LABREF 19:11
PROVIDERS: ATTEND Internal Medicine Cardiovascular Disease
DX: E78.5 Hyperlipidemia, unspecified (principal)